=== PATIENT | male | born 1975 | race Two or more races ===

== ENCOUNTER 2020-10-31 10:53 | Outpatient (CLI) | payer OTHER | END 2020-10-31 23:59 | disposition home or self-care (01) | LOC: MSC 10:53 | PROVIDERS: ATTEND Internal Medicine | DX: M10.9 Gout, unspecified (principal); Z11.3 Encounter for screening for infections with a predominantly sexual mode of transmission; K76.89 Other specified diseases of liver; E78.5 Hyperlipidemia, unspecified; Z98.890 Other specified postprocedural states ==